=== PATIENT | female | born 1970 | race Caucasian/White ===

== ENCOUNTER 2018-04-24 18:51 | Emergency (ER) | payer OTHER ==
[2018-04-24 18:56] VITALS: RESP 18
[2018-04-24 19:31] LABS: Basophils # (A) 0.1 k/uL (0-0.2); Basophils % (A) 0 %; Eosinophils # (A) 0.2 k/uL (0-0.7); Eosinophils % (A) 2 %; HCT 37.6 % (34.0-46.0); HGB 12.5 gm/dL (11.4-16.0); Lymphocytes # (A) 2.5 k/uL (1.0-4.8); Lymphocytes % (A) 20 %; MCH 28.5 pg (25.0-35.0); MCHC 33.1 g/dL (31.0-37.0); MCV 86.1 fL (80.0-100.0); Mean Platelet Volume 6.5; Monocytes # (A) 0.3 k/uL (0-1.0); Monocytes % (A) 3 %; Neutrophils % (A) 74 %; Platelet Count 375 k/uL (150-450); RBC 4.37 m/uL (3.80-5.40); RDW 13.6 % (11.5-15.5); WBC 12.1 k/uL (3.8-10.6)
[2018-04-24 19:38] LABS: ALT 14 U/L (9-52); AST 23 U/L (14-36); Albumin 3.8 g/dL (3.5-5.0); Alkaline Phosphatase 103 U/L (38-126); Anion Gap 10 mmol/L; Blood Urea Nitrogen 9 mg/dL (7-17); Calcium 9.2 mg/dL (8.4-10.2); Carbon Dioxide 23 mmol/L (22-30); Chloride 102 mmol/L (98-107); Glucose 97 mg/dL (74-99); Magnesium 1.9 mg/dL (1.6-2.3); Potassium 4.1 mmol/L (3.5-5.1); Sodium 135 mmol/L (137-145); Total Bilirubin 0.6 mg/dL (0.2-1.3); Total Protein 7.1 g/dL (6.3-8.2)
[2018-04-24 19:40] LABS: Creatine Kinase 25 U/L (30-135)
--- NOTE | 2018-04-24 19:43 | ED ---
General Adult HPI - General Chief complaint: Chest Pain Stated complaint: chest pain Source: patient Mode of arrival: wheelchair Limitations: no limitations - History of Present Illness Initial comments: Dictation was produced using [employer] dictation software. please excuse any grammatical, word or spelling errors. Chief Complaint: 47-year-old female with past medical history tobacco abuse dyslipidemia and hypertension presents with chest pain. History of Present Illness: Patient presents with multiple complaints. Her primary complaint is chest tightness. She states that it's been ongoing for several weeks. Patient only came today because she just got health insurance. Patient reports that her pain is constant. Not exacerbated with movement. She states sometimes exacerbated with exertion however it does also occur at rest. She does state that sometimes radiates to her shoulders or neck. She states that it also is sometimes associated with diaphoresis. Patient has not been evaluated by a per diem physical therapist recently. Patient also has complaints of bilateral hand and foot her seizures that are intermittent. She also points that her feet are intermittently cold. Denies any constitutional symptoms. The ROS documented in this emergency department record has been reviewed and confirmed by me. Those systems with pertinent positive or negative responses have been documented in the HPI. All other systems are other negative and/or noncontributory. - Related Data Home Medications Medication Instructions Recorded Confirmed Acetaminophen [Tylenol] 650 mg PO Q6H PRN 04/24/18 04/24/18 Atorvastatin [Lipitor] 20 mg PO HS 04/24/18 04/24/18 Escitalopram [Lexapro] 20 mg PO HS 04/24/18 04/24/18 Glucosamine/[place] A Sod [Osteo 1 tab PO HS 04/24/18 04/24/18 Bi-Flex Caplet] Ibuprofen [Advil] 200 mg PO Q8HR PRN 04/24/18 04/24/18 Lisinopril-Hctz 20-25 mg 2 tab PO HS 04/24/18 04/24/18 [Zestoretic 20-25] Omeprazole 20 mg PO HS 04/24/18 04/24/18 SUMAtriptan SUCCINATE [Imitrex] 100 mg PO BID PRN 04/24/18 04/24/18 Allergies Allergy/AdvReac Type Severity Reaction Status Date / Time amoxicillin AdvReac Unknown Verified 04/24/18 19:03 Review of Systems ROS Statement: Those systems with pertinent positive or pertinent negative responses have been documented in the HPI. ROS Other: All systems not noted in ROS Statement are negative. Past Medical History Past Medical History: Hyperlipidemia, Hypertension History of Any Multi-Drug Resistant Organisms: None Reported Past Surgical History: Appendectomy, Tonsillectomy Past Psychological History: Anxiety Smoking Status: Former smoker Past Alcohol Use History: Occasional Past Drug Use History: None Reported General Exam - General Exam Comments Initial Comments: PHYSICAL EXAM: General Impression: Alert and oriented x3, not in acute distress HEENT: Normocephalic atraumatic, extra-ocular movements intact, pupils equal and reactive to light bilaterally, mucous membranes moist. Cardiovascular: Heart regular rate and rhythm, S1&S2 audible, no murmurs, rubs or gallops Chest: Lungs clear to auscultation bilaterally, no rhonchi, no wheeze, no rales Abdomen: Bowel sounds present, abdomen soft, non-tender, non-distended, no organomegaly Musculoskeletal: Pulses present and equal in all extremities, no peripheral edema Motor: Power 5/5 bilaterally, no focal deficits noted Neurological: CN II-XII grossly intact, no focal motor or sensory deficits noted Skin: Intact with no visualized rashes Psych: Normal affect and mood Limitations: no limitations Course Vital Signs 04/24/18 04/24/18 18:52 19:52 Temperature 97.7 F Pulse Rate 116 H 84 Respiratory 18 18 Rate Blood Pressure 110/59 133/80 O2 Sat by Pulse 98 96 Oximetry Medical Decision Making - Medical Decision Making ED course: 47-year-old female presents with a myriad of complaints. Her primary concern is chest pain. Chest pain is rather atypical with some typical features. Vital signs upon arrival shows heart rate of 116. Patient denies any history of blood clots or DVTs. EKG shows sinus tachycardia. Repeat vital signs are obtained showing no acute processes. Vision appears well. She does not have any chest pain upon reevaluation. Laboratory evaluation obtained. Mild leukocytosis of 12.1 likely secondary to stress. Coag panel is unremarkable. D-dimer is negative. Metabolic panel is negative. Cardiac enzymes are negative. Chest x-ray shows no acute processes. EKG is within normal limits without any signs of ischemia or infarction. Patient's clinical presentation is atypical. She does have multiple risk factors however there are no high-risk features with her clinical presentation. She however does have a lot of risk factors per discussed with patient that she would likely benefit from cardiac stress test. Patient does have good follow-up with her primary care physician. She is told to follow-up with her PCP for outpatient cardiac stress test. She is understandable and agreeable. EKG Interpretation: A 12 lead EKG was obtained. It was interpreted by myself and attending physician. There is a P wave before every QRS complex. Rate is while on. Rhythm is sinus tachycardia,. Interval 140, care is 82, QTC 471.. QT is not prolonged. No ST segment depression or elevation.. Overall, this EKG is unremarkable - Lab Data Result diagrams: 04/24/18 19:17 04/24/18 19:17 Lab Results 04/24/18 04/24/18 04/24/18 Range/Units 19:17 19:17 19:17 WBC 12.1 H (3.8-10.6) k/uL RBC 4.37 (3.80-5.40) m/uL Hgb 12.5 (11.4-16.0) gm/dL Hct 37.6 (34.0-46.0) % MCV 86.1 (80.0-100.0) fL MCH 28.5 (25.0-35.0) pg MCHC 33.1 (31.0-37.0) g/dL RDW 13.6 (11.5-15.5) % Plt Count 375 (150-450) k/uL Neutrophils % 74 % Lymphocytes % 20 % Monocytes % 3 % Eosinophils % 2 % Basophils % 0 % Neutrophils # 9.0 H (1.3-7.7) k/uL Lymphocytes # 2.5 (1.0-4.8) k/uL Monocytes # 0.3 (0-1.0) k/uL Eosinophils # 0.2 (0-0.7) k/uL Basophils # 0.1 (0-0.2) k/uL APTT (22.0-30.0) sec D-Dimer (<0.60) mg/L FEU Sodium 135 L (137-145) mmol/L Potassium 4.1 (3.5-5.1) mmol/L Chloride 102 (98-107) mmol/L Carbon Dioxide 23 (22-30) mmol/L Anion Gap 10 mmol/L BUN 9 (7-17) mg/dL Creatinine 0.48 L (0.52-1.04) mg/dL Est GFR (CKD-EPI)AfAm >90 (>60 ml/min/1.73 sqM) Est GFR (CKD-EPI)NonAf >90 (>60 ml/min/1.73 sqM) Glucose 97 (74-99) mg/dL Calcium 9.2 (8.4-10.2) mg/dL Magnesium 1.9 (1.6-2.3) mg/dL Total Bilirubin 0.6 (0.2-1.3) mg/dL AST 23 (14-36) U/L ALT 14 (9-52) U/L Alkaline Phosphatase 103 (38-126) U/L Total Creatine Kinase 25 L (30-135) U/L CK-MB (CK-2) <0.2 (0.0-2.4) ng/mL CK-MB (CK-2) Rel Index Troponin I <0.012 (0.000-0.034) ng/mL Total Protein 7.1 (6.3-8.2) g/dL Albumin 3.8 (3.5-5.0) g/dL 04/24/18 Range/Units 19:17 WBC (3.8-10.6) k/uL RBC (3.80-5.40) m/uL Hgb (11.4-16.0) gm/dL Hct (34.0-46.0) % MCV (80.0-100.0) fL MCH (25.0-35.0) pg MCHC (31.0-37.0) g/dL RDW (11.5-15.5) % Plt Count (150-450) k/uL Neutrophils % % Lymphocytes % % Monocytes % % Eosinophils % % Basophils % % Neutrophils # (1.3-7.7) k/uL Lymphocytes # (1.0-4.8) k/uL Monocytes # (0-1.0) k/uL Eosinophils # (0-0.7) k/uL Basophils # (0-0.2) k/uL APTT 26.1 (22.0-30.0) sec D-Dimer 0.21 (<0.60) mg/L FEU Sodium (137-145) mmol/L Potassium (3.5-5.1) mmol/L Chloride (98-107) mmol/L Carbon Dioxide (22-30) mmol/L Anion Gap mmol/L BUN (7-17) mg/dL Creatinine (0.52-1.04) mg/dL Est GFR (CKD-EPI)AfAm (>60 ml/min/1.73 sqM) Est GFR (CKD-EPI)NonAf (>60 ml/min/1.73 sqM) Glucose (74-99) mg/dL Calcium (8.4-10.2) mg/dL Magnesium (1.6-2.3) mg/dL Total Bilirubin (0.2-1.3) mg/dL AST (14-36) U/L ALT (9-52) U/L Alkaline Phosphatase (38-126) U/L Total Creatine Kinase (30-135) U/L CK-MB (CK-2) (0.0-2.4) ng/mL CK-MB (CK-2) Rel Index Troponin I (0.000-0.034) ng/mL Total Protein (6.3-8.2) g/dL Albumin (3.5-5.0) g/dL Disposition Clinical Impression: Chest pain Disposition: HOME SELF-CARE Condition: Good Instructions: Chest Pain (ED) Is patient prescribed a controlled substance at d/c from ED?: No Referrals: Cesar Cuenca MD [Primary Care Provider] - 1-2 days
[2018-04-24 19:45] LABS: D-Dimer 0.21 mg/L FEU (<0.60); Partial Thromboplastin Time 26.1 sec (22.0-30.0)
[2018-04-24 19:53] LABS: Creatine Kinase MB <0.2 ng/mL (0.0-2.4); Troponin I <0.012 ng/mL (0.000-0.034)
--- NOTE | 2018-04-24 20:05 | XR ---
EXAMINATION TYPE: XR chest 2V DATE OF EXAM: 04/24/2018 COMPARISON: NONE HISTORY: Chest pain TECHNIQUE: Frontal and lateral views of the chest are obtained. FINDINGS: Heart and mediastinum are normal. Lungs are clear. Diaphragm is normal. Bony thorax appear s normal. There are chest leads. IMPRESSION: Normal chest.
[2018-04-24 20:50] VITALS: BP 116/85; PULSE 80; TEMP 98.3
[2018-04-24 21:26] LABS: Prothrombin Time 10.1 sec (9.0-12.0)
== END 2018-04-24 20:33 | disposition home or self-care (01) ==
LOC: EC 18:51
DX: R07.89 Other chest pain (principal); R00.0 Tachycardia, unspecified; R61 Generalized hyperhidrosis; D72.829 Elevated white blood cell count, unspecified; E78.5 Hyperlipidemia, unspecified; I10 Essential (primary) hypertension; F41.9 Anxiety disorder, unspecified; Z87.891 Personal history of nicotine dependence; Z90.49 Acquired absence of other specified parts of digestive tract; Z79.899 Other long term (current) drug therapy; Z88.0 Allergy status to penicillin
CPT/HCPCS: 36415; 71046; 80053; 82550; 82553; 83735; 84484; 85025; 85379; 85610; 85730; 93005; 99285

== ENCOUNTER 2018-09-30 02:54 | Emergency (ER) | payer OTHER ==
[2018-09-30] MEDS ORDERED: HYDROmorphone 1 MG/ML 1 ML SYRINGE IVP STA ×2 (04:17→07:47)
[2018-09-30 04:38] LABS: ALT 24 U/L (9-52); AST 21 U/L (14-36); Albumin 3.9 g/dL (3.5-5.0); Alkaline Phosphatase 110 U/L (38-126); Amylase 41 U/L (30-110); Anion Gap 10 mmol/L; Blood Urea Nitrogen 9 mg/dL (7-17); Calcium 9.2 mg/dL (8.4-10.2); Carbon Dioxide 25 mmol/L (22-30); Chloride 101 mmol/L (98-107); Glucose 90 mg/dL (74-99); Lipase 91 U/L (23-300); Potassium 3.7 mmol/L (3.5-5.1); Sodium 136 mmol/L (137-145); Total Bilirubin 0.5 mg/dL (0.2-1.3); Total Protein 6.9 g/dL (6.3-8.2)
[2018-09-30 04:42] LABS: Basophils # (A) 0.1 k/uL (0-0.2); Basophils % (A) 1 %; Eosinophils # (A) 0.3 k/uL (0-0.7); Eosinophils % (A) 4 %; HCT 38.3 % (34.0-46.0); Lymphocytes # (A) 4.4 k/uL (1.0-4.8); Lymphocytes % (A) 53 %; MCH 28.4 pg (25.0-35.0); MCHC 33.9 g/dL (31.0-37.0); MCV 83.8 fL (80.0-100.0); Mean Platelet Volume 6.7; Monocytes # (A) 0.3 k/uL (0-1.0); Monocytes % (A) 4 %; Neutrophils # (A) 3.2 k/uL (1.3-7.7); Neutrophils % (A) 38 %; Platelet Count 375 k/uL (150-450); RBC 4.57 m/uL (3.80-5.40); RDW 13.4 % (11.5-15.5); WBC 8.4 k/uL (3.8-10.6)
[2018-09-30 05:44] VITALS: RESP 18
[2018-09-30 05:47] LABS: Appearance,Urine Clear (Clear); Bilirubin,Urine Negative (Negative); Blood,Urine Negative (Negative); Color,Urine Light Yellow; Glucose,Urine (UA) Negative (Negative); Ketones,Urine Negative (Negative); Leukocyte Esterase,Urine Negative (Negative); Nitrite,Urine Negative (Negative); Protein,Urine Negative (Negative); Urobilinogen,Urine <2.0 mg/dL (<2.0)
--- NOTE | 2018-09-30 07:35 | US ---
EXAMINATION TYPE: US abdomen limited DATE OF EXAM: 09/30/2018 COMPARISON: NONE CLINICAL HISTORY: Pain, RUQ. NPO, RUQ pain EXAM MEASUREMENTS: Liver Length: 15.5 cm Gallbladder Wall: 0.2 cm Right Kidney: 10.7 x 5.4 x 4.4 cm Pancreas: Limited by overlying bowel gas, Tail not well visualized Liver: Scanned through ribs. Limited visualization due to overlying bowel gas. Portions seen appear wnl. Gallbladder: wnl Evidence for sonographic Saldana's sign: neg CBD: Obscured by overlying bowel gas Right Kidney: wnl Portions of pancreas appear within normal limits. Entire pancreas is not visualized due to shadowing from overlying bowel gas per technologist. Visualized liver is heterogeneously hyperechoic. Evaluatio n for focal masses is suboptimal due to the heterogeneity. Gallbladder seen without shadowing mobile gallstones. Limited images right kidney show no gross hydronephrosis. IMPRESSION: Suboptimal study but no gallstones or ultrasound evidence for acute cholecystitis.
--- NOTE | 2018-09-30 07:51 | ED ---
Abdominal Pain HPI - General Source: patient, family Mode of arrival: ambulatory Limitations: no limitations - History of Present Illness MD Complaint: abdominal pain Onset/Timin -: week(s) Location: RUQ Radiation: back Migration to: no migration Severity: severe Quality: sharp Consistency: constant Improves With: nothing Worsens With: movement Associated Symptoms: nausea <Veto Trujillo - Last Filed: 09/30/18 07:48> <Flaco Wilkinson - Last Filed: 09/30/18 09:23> - General Chief Complaint: Abdominal Pain Stated Complaint: rib pain Time Seen by Provider: 09/30/18 03:55 - History of Present Illness Initial Comments: This patient is a 48-year-old woman who is having approximately 2 weeks of right upper quadrant pain. The patient states that initially it was intermittent. She will get the pain lasting for 30-45 minutes and then it would resolve. She states that it seemed to be brought on by food. The patient states that over the last day to 2 the pain has become more constant and is now severe. She describes it as a sharp pain. She has not noted relieving factors and again states that it is worse with eating. No associated symptoms other then some accompanying nausea. No vomiting. She has not noted a change in bowel movements or urination. (Veto Trujillo) - Related Data Home Medications Medication Instructions Recorded Confirmed Acetaminophen [Tylenol] 650 mg PO Q6H PRN 04/24/18 09/30/18 Atorvastatin [Lipitor] 20 mg PO HS 04/24/18 09/30/18 Escitalopram [Lexapro] 20 mg PO HS 04/24/18 09/30/18 Glucosamine/[place] A Sod [Osteo 1 tab PO HS 04/24/18 09/30/18 Bi-Flex Caplet] Ibuprofen [Advil] 200 mg PO Q8HR PRN 04/24/18 09/30/18 Lisinopril-Hctz 20-25 mg 2 tab PO HS 04/24/18 09/30/18 [Zestoretic 20-25] Omeprazole 20 mg PO HS 04/24/18 09/30/18 SUMAtriptan SUCCINATE [Imitrex] 100 mg PO BID PRN 04/24/18 09/30/18 LORazepam [Ativan] 2 mg PO DAILY PRN 09/30/18 09/30/18 Previous Rx's Medication Instructions Recorded traMADol HCl [Ultram] 50 mg PO Q6H PRN #12 tab 09/30/18 Allergies Allergy/AdvReac Type Severity Reaction Status Date / Time amoxicillin AdvReac Unknown Verified 09/30/18 07:59 Review of Systems ROS Other: All systems not noted in ROS Statement are negative. Constitutional: Denies: fever, chills Respiratory: Denies: cough, dyspnea Cardiovascular: Denies: chest pain, palpitations, edema, syncope Gastrointestinal: Reports: abdominal pain, nausea. Denies: vomiting, diarrhea, melena, hematochezia Genitourinary: Denies: dysuria, hematuria Musculoskeletal: Denies: back pain Skin: Denies: rash Neurological: Denies: headache, weakness, numbness <Veto Trujillo - Last Filed: 09/30/18 07:48> ROS Other: All systems not noted in ROS Statement are negative. <Flaco Wilkinson - Last Filed: 09/30/18 09:23> ROS Statement: Those systems with pertinent positive or pertinent negative responses have been documented in the HPI. Past Medical History Past Medical History: Hyperlipidemia, Hypertension History of Any Multi-Drug Resistant Organisms: None Reported Past Surgical History: Appendectomy, Tonsillectomy Past Psychological History: Anxiety Smoking Status: Former smoker Past Alcohol Use History: Occasional Past Drug Use History: None Reported <Veto Trujillo - Last Filed: 09/30/18 07:48> General Exam Limitations: no limitations General appearance: alert, in no apparent distress Head exam: Present: atraumatic, normocephalic Eye exam: Present: normal appearance. Absent: scleral icterus, conjunctival injection ENT exam: Present: normal oropharynx Neck exam: Present: normal inspection Respiratory exam: Present: normal lung sounds bilaterally. Absent: respiratory distress, wheezes, rales, rhonchi, stridor Cardiovascular Exam: Present: regular rate, normal rhythm, normal heart sounds. Absent: systolic murmur, diastolic murmur, rubs, gallop GI/Abdominal exam: Present: soft, tenderness (Mild right upper quadrant tenderness). Absent: distended, guarding, rebound, rigid, mass, pulsatile mass, hernia Extremities exam: Present: normal inspection, normal capillary refill. Absent: pedal edema, calf tenderness Back exam: Present: normal inspection. Absent: CVA tenderness (R), CVA tenderness (L) Neurological exam: Present: alert Skin exam: Present: warm, dry, intact, normal color. Absent: rash <CassandraVeto - Last Filed: 09/30/18 07:48> Course Vital Signs 09/30/18 09/30/18 03:45 05:43 Temperature 98.6 F Pulse Rate 100 81 Respiratory 20 18 Rate Blood Pressure 133/80 117/63 O2 Sat by Pulse 99 96 Oximetry Medical Decision Making - Lab Data Result diagrams: 09/30/18 04:05 09/30/18 04:05 <Veto Trujillo - Last Filed: 09/30/18 07:48> - Lab Data Result diagrams: 09/30/18 04:05 09/30/18 04:05 - Radiology Data Radiology results: report reviewed (Ultrasound and computed tomography scan revealed no acute process) <Flaco Wilkinson - Last Filed: 09/30/18 09:23> - Medical Decision Making Patient reevaluated and resting comfortably in bed. Patient symptom-free at this time. Patient and family updated on results and need for follow-up with further testing. Ulcer updated and need to return if symptoms return or worsen (Flaco Wilkinson) - Lab Data Lab Results 09/30/18 09/30/18 09/30/18 Range/Units 04:05 04:05 05:30 WBC 8.4 (3.8-10.6) k/uL RBC 4.57 (3.80-5.40) m/uL Hgb 13.0 (11.4-16.0) gm/dL Hct 38.3 (34.0-46.0) % MCV 83.8 (80.0-100.0) fL MCH 28.4 (25.0-35.0) pg MCHC 33.9 (31.0-37.0) g/dL RDW 13.4 (11.5-15.5) % Plt Count 375 (150-450) k/uL Neutrophils % 38 % Lymphocytes % 53 % Monocytes % 4 % Eosinophils % 4 % Basophils % 1 % Neutrophils # 3.2 (1.3-7.7) k/uL Lymphocytes # 4.4 (1.0-4.8) k/uL Monocytes # 0.3 (0-1.0) k/uL Eosinophils # 0.3 (0-0.7) k/uL Basophils # 0.1 (0-0.2) k/uL Sodium 136 L (137-145) mmol/L Potassium 3.7 (3.5-5.1) mmol/L Chloride 101 (98-107) mmol/L Carbon Dioxide 25 (22-30) mmol/L Anion Gap 10 mmol/L BUN 9 (7-17) mg/dL Creatinine 0.47 L (0.52-1.04) mg/dL Est GFR (CKD-EPI)AfAm >90 (>60 ml/min/1.73 sqM) Est GFR (CKD-EPI)NonAf >90 (>60 ml/min/1.73 sqM) Glucose 90 (74-99) mg/dL Calcium 9.2 (8.4-10.2) mg/dL Total Bilirubin 0.5 (0.2-1.3) mg/dL AST 21 (14-36) U/L ALT 24 (9-52) U/L Alkaline Phosphatase 110 (38-126) U/L Total Protein 6.9 (6.3-8.2) g/dL Albumin 3.9 (3.5-5.0) g/dL Amylase 41 (30-110) U/L Lipase 91 (23-300) U/L Urine Color Light Yellow Urine Appearance Clear (Clear) Urine pH 7.0 (5.0-8.0) Ur Specific [place] 1.010 (1.001-1.035) Urine Protein Negative (Negative) Urine Glucose (UA) Negative (Negative) Urine Ketones Negative (Negative) Urine Blood Negative (Negative) Urine Nitrite Negative (Negative) Urine Bilirubin Negative (Negative) Urine Urobilinogen <2.0 (<2.0) mg/dL Ur Leukocyte Esterase Negative (Negative) Disposition <Veto Trujillo - Last Filed: 09/30/18 07:48> Is patient prescribed a controlled substance at d/c from ED?: Yes When asked, does pt state using other controlled substances?: Yes If prescribed controlled substance>3 days was MAPS reviewed?: Prescribed <3 Days If opioid is for acute pain is fill amount 7 days or less?: Yes If Rx opioid, was Start Talking consent form obtained?: Yes <Flaco Wilkinson - Last Filed: 09/30/18 09:23> Clinical Impression: Abdominal pain Disposition: HOME SELF-CARE Condition: Stable Instructions (If sedation given, give patient instructions): Abdominal Pain (ED) Additional Instructions: Please follow-up with primary care physician in the next day or 2 for recheck. Have primary care physician consider HIDA scan, barium swallow or EGD. Return for increased pain, vomiting, fevers, worsening symptoms or other concerns. Do not take pain medication with Ativan. Prescriptions: traMADol HCl [Ultram] 50 mg PO Q6H PRN #12 tab PRN Reason: Pain/Discomfort Referrals: Cesar Cuenca MD [Primary Care Provider] - 1-2 days
[2018-09-30] MEDS ORDERED: HYDROmorphone 0.5 MG/0.5 ML SYRINGE IVP STA (07:54)
--- NOTE | 2018-09-30 08:28 | CT ---
EXAMINATION TYPE: CT abdomen pelvis wo con DATE OF EXAM: 09/30/2018 COMPARISON: Ultrasound abdomen same date HISTORY: RUQ pain CT DLP: 1004.6 mGycm Automated exposure control for dose reduction was used. TECHNIQUE: Helical acquisition of images from the lung bases through the pelvis. FINDINGS: Lack of intravenous contrast could compromise sensitivity. Small umbilical hernia contains fat, midline incision suspected in inferomedial umbilical region. LUNG BASES: 3 mm soft tissue nodule present right lower lobe image 14 laterally is indeterminate. AORTA: No significant abnormality is appreciated. LIVER/GB: No significant abnormality is appreciated. PANCREAS: No significant abnormality is seen. SPLEEN: No significant abnormality is seen. Small splenule incidental splenic hilum. ADRENALS: No significant abnormality is seen. KIDNEYS: No significant abnormality is seen. REPRODUCTIVE ORGANS: No significant abnormality is seen. Probable follicles of possible ovarian cyst noted greater on the left, uterus is normal URINARY BLADDER: No significant abnormality is seen. BOWEL: No significant abnormality is seen. FREE AIR: No Free Air is visible. ASCITES: None visible. PELVIC ADENOPATHY: None visualized. RETROPERITONEAL ADENOPATHY: No Retroperitoneal Adenopathy visible. OSSEOUS STRUCTURES: No significant abnormality is seen. IMPRESSION: noncontrast exam, no significant abnormality
[2018-09-30 09:36] VITALS: BP 113/67; PULSE 64; TEMP 98.4
== END 2018-09-30 09:25 | disposition home or self-care (01) ==
LOC: EC 02:54
DX: R10.11 Right upper quadrant pain (principal); R11.0 Nausea; E78.5 Hyperlipidemia, unspecified; I10 Essential (primary) hypertension; F41.9 Anxiety disorder, unspecified; Z87.891 Personal history of nicotine dependence; Z88.0 Allergy status to penicillin; Z79.899 Other long term (current) drug therapy; Z90.49 Acquired absence of other specified parts of digestive tract
CPT/HCPCS: 36415; 80053; 82150; 83690; 85025; 81003; 76705; 74176; 99284; 96374; 96376; J1170 ×2

== ENCOUNTER 2024-11-11 19:27 | Emergency (ER) | payer OTHER ==
[2024-11-11] MEDS: SODIUM CHLORIDE 0.9% 1,000 ML IV STA (20:24)
[2024-11-11] MEDS: MECLIZINE 12.5 MG TAB PO STA (20:24)
[2024-11-11 20:30] LABS: Basophils # (A) 0.06 10*3/uL (0.00-0.10); Basophils % (A) 0.7 %; Eosinophils # (A) 0.17 10*3/uL (0.04-0.35); Eosinophils % (A) 2.1 %; HCT 39.7 % (37.2-46.3); Lymphocytes # (A) 2.88 10*3/uL (0.90-5.00); Lymphocytes % (A) 35.7 %; MCHC 32.7 g/dL (32.0-37.0); MCV 88.6 fL (80.0-97.0); Mean Platelet Volume 8.7 fL (9.5-12.2); Monocytes # (A) 0.52 10*3/uL (0.20-1.00); Monocytes % (A) 6.4 %; Neutrophils # (A) 4.42 10*3/uL (1.80-7.70); Neutrophils % (A) 54.9 %; Platelet Count 351 10*3/uL (140-440); RBC 4.48 10*6/uL (4.10-5.20); WBC 8.07 10*3/uL (4.50-10.00)
[2024-11-11 20:41] LABS: Prothrombin Time 11.1 sec (10.0-12.5)
[2024-11-11 20:42] LABS: ALT 19 U/L (4-34); AST 22 U/L (14-36); African American GFR (CKD) >90 (>60 ml/min/1.73 sqM); Alkaline Phosphatase 87 U/L (38-126); Anion Gap 9 mmol/L; Blood Urea Nitrogen 10 mg/dL (7-17); Calcium 9.3 mg/dL (8.4-10.2); Carbon Dioxide 26 mmol/L (22-30); Chloride 102 mmol/L (98-107); Glucose 99 mg/dL (74-99); Non-African American GFR(CKD) 80 (>60 ml/min/1.73 sqM); Potassium 3.9 mmol/L (3.5-5.1); Sodium 137 mmol/L (137-145); Total Bilirubin 0.5 mg/dL (0.2-1.3); Total Protein 6.9 g/dL (6.3-8.2)
--- NOTE | 2024-11-11 21:03 | CT ---
EXAMINATION TYPE: CT brain wo con CT DLP: 1199 mGycm, Automated exposure control for dose reduction was used. DATE OF EXAM: 11/11/2024 8:54 PM COMPARISON: None. CLINICAL INDICATION:Female, 54 years old with history of dizziness, DIZZINESS, RIGHT SIDE FACIAL TING LING/NUMBNESS TODAY TECHNIQUE: Brain: Multiple axial CT images of the brain were obtained without IV contrast. . Coronal and sagitta l reformats reviewed. FINDINGS: Brain: Extra-axial spaces: No abnormal extra-axial fluid collections. Ventricular system: Within normal limits Cerebral parenchyma: No acute intraparenchymal hemorrhage or mass effect. The leyva-white junction is well differentiated. Cerebellum: Unremarkable. Mass effect: No evidence of midline shift. Intracranial vasculature: unremarkable Soft tissues: Normal. Calvarium/osseous structures: No depressed skull fracture. Paranasal sinuses and mastoid air cells: Clear Visualized orbits: Orbital contents are intact. IMPRESSION: No acute intracranial process. [facility], , 11/11/2024 9:01 PM
--- NOTE | 2024-11-11 21:15 | CT ---
EXAMINATION TYPE: CT angio head neck CT DLP: 949.9 mGycm, Automated exposure control for dose reduction was used. DATE OF EXAM: 11/11/2024 9:08 PM COMPARISON: CT brain of the same date. CLINICAL INDICATION:Female, 54 years old with history of dizziness; PHH, DIZZINESS, RIGHT SIDE FACIAL TINGLING/NUMBNESS TODAY TECHNIQUE: Axially acquired helical CT angiogram of the head and neck was obtained with contrast util izing 75 cc of [id number]-[id number] administered intravenously. Axial images are supplemented with 3D reconstru ctions which were post-processed at an independent workstation. NASCET criteria used. MIP imaging performed on a separate workstation and submitted for review. FINDINGS: CTA HEAD: No evidence of acute intracranial hemorrhage, mass effect, or midline shift. The ventricles, sulci, a nd cisterns are unremarkable. The visualized portions of the internal carotid arteries, middle cerebral arteries, anterior cerebral arteries, and posterior cerebral arteries are patent. The basilar and vertebral arteries are patent. CTA NECK: Right Carotid System: The common carotid artery and external carotid artery are patent. The carotid bifurcation demonstrate s no evidence of hemodynamically significant stenosis. The remaining portions of the internal carotid artery demonstrate normal size without significant narrowing. Left Carotid System: The common carotid artery and external carotid artery are patent. The carotid bifurcation demonstrate s no evidence of hemodynamically significant stenosis. The remaining portions of the internal carotid artery demonstrate normal size without significant narrowing. Vertebral arteries are patent without evidence hemodynamically significant stenosis. Right vertebral artery is dominant. There is a bovine aortic arch. The origins of the great vessels are patent. No evidence of hemodynami hammad significant stenosis. Mild multilevel degenerative disc disease of the cervical spine at C4-C7. IMPRESSION: 1. No evidence of dissection of the cervical internal carotid arteries or vertebral arteries or any e vidence of significant stenosis at the carotid bifurcations. 2. No evidence of high-grade stenosis or intracranial aneurysm. [facility], , 11/11/2024 9:13 PM
--- NOTE | 2024-11-11 21:54 | ED ---
Dizziness HPI - General Chief Complaint: Dizziness Stated Complaint: Balance off/AMS Time Seen by Provider: 11/11/24 19:35 Source: patient Mode of arrival: ambulatory Limitations: no limitations - History of Present Illness Initial Comments: 54-year-old female presenting with chief complaint of dizziness. Patient reports that dizziness has been ongoing for months. She has been seen by ENT and is now awaiting an appointment with neurology. She reports that today the right side of her face felt swollen so she came to the ER. She reports intermittent headaches that have also been ongoing for few months. States that she has moments of twitching in the extremities and face. She has history of hypertension and hyperlipidemia. She does not smoke. She drinks socially. She has been using marijuana gummies at night for sleep. No chest pain or dif ficulty breathing. No abdominal pain nausea or vomiting. No use of blood thinners. She also admits to intermittent confusion which has been ongoing as well. - Related Data Home Medications Medication Instructions Recorded Confirmed Acetaminophen [Tylenol] 650 mg PO Q6H PRN 04/24/18 09/30/18 Atorvastatin [Lipitor] 20 mg PO HS 04/24/18 09/30/18 Escitalopram [Lexapro] 20 mg PO HS 04/24/18 09/30/18 Glucosamine/[place] A Sod [Osteo 1 tab PO HS 04/24/18 09/30/18 Bi-Flex Caplet] Ibuprofen [Advil] 200 mg PO Q8HR PRN 04/24/18 09/30/18 Lisinopril-Hctz 20-25 mg 2 tab PO HS 04/24/18 09/30/18 [Zestoretic 20-25] Omeprazole 20 mg PO HS 04/24/18 09/30/18 SUMAtriptan succinate [Imitrex] 100 mg PO BID PRN 04/24/18 09/30/18 LORazepam [Ativan] 2 mg PO DAILY PRN 09/30/18 09/30/18 Previous Rx's Medication Instructions Recorded traMADol HCl [Ultram] 50 mg PO Q6H PRN #12 tab 09/30/18 Allergies Allergy/AdvReac Type Severity Reaction Status Date / Time amoxicillin AdvReac Unknown Verified 11/11/24 19:33 Review of Systems ROS Statement: Those systems with pertinent positive or pertinent negative responses have been documented in the HPI. ROS Other: All systems not noted in ROS Statement are negative. Past Medical History Past Medical History: Hyperlipidemia, Hypertension History of Any Multi-Drug Resistant Organisms: None Reported Past Surgical History: Appendectomy, Tonsillectomy Past Psychological History: Anxiety, Depression Smoking Status: Never smoker Past Alcohol Use History: Occasional Past Drug Use History: None Reported General Exam Limitations: no limitations General appearance: alert, in no apparent distress Head exam: Present: atraumatic, normocephalic, normal inspection Eye exam: Present: normal appearance, PERRL, EOMI. Absent: periorbital swelling Pupils: Present: normal accommodation Neck exam: Present: normal inspection. Absent: meningismus Respiratory exam: Present: normal lung sounds bilaterally. Absent: respiratory distress, wheezes, rales, rhonchi, stridor Cardiovascular Exam: Present: regular rate, normal rhythm, normal heart sounds. Absent: systolic murmur, diastolic murmur, rubs, gallop, clicks Extremities exam: Present: normal inspection Neurological exam: Present: alert, oriented X3 Expanded Patient oriented to: Present: person, place, time Speech: Present: fluid speech Cranial nerves: EOM's Intact: Normal, Facial Sensation: Normal Cerebellar function: Finger to Nose: Normal, Heel to [place]: Normal Motor strength exam: RUE: 5, LUE: 5, RLE: 5, LLE: 5 Eye Response: (4) open spontaneously Motor Response: (6) obeys commands Verbal Response: (5) oriented [place] Total: 15 Psychiatric exam: Present: normal affect, normal mood Skin exam: Present: warm, dry, normal color Course Vital Signs 11/11/24 11/11/24 11/11/24 19:30 20:27 23:08 Temperature 98.5 F 98.3 F Pulse Rate 87 73 77 Respiratory 18 18 19 Rate Blood Pressure 134/83 131/90 90/54 O2 Sat by Pulse 99 97 96 Oximetry Medical Decision Making - Medical Decision Making Was pt. sent in by a medical professional or institution (, PA, AUTO MECHANICS TEACHER, urgent care, hospital, or fpc...) When possible be specific @ -No Did you speak to anyone other than the patient for history (EMS, parent, family, police, friend...)? What history was obtained from this source @ -No Did you review nursing and triage notes (agree or disagree)? Why? @ -I reviewed and agree with nursing and triage notes Were old charts reviewed (outside hosp., previous admission, EMS record, old EKG, old radiological studies, urgent care reports/EKG's, fpc records)? Report findings @ -No old charts were reviewed Differential Diagnosis (chest pain, altered mental status, abdominal pain women, abdominal pain men, vaginal bleeding, weakness, fever, dyspnea, syncope, headache, dizziness, GI bleed, back pain, seizure, CVA, palpatations, mental health, musculoskeletal)? @ -MDM Differential Dizziness: Benign paroxysmal positional Vertigo, Meniere’s disease, otitis media, acoustic neuroma, vertebrobasilar insufficiency, cerebellar stroke, encephalitis, hypovolemic, arrhythmia, coronary artery syndrome, anemia… this is not meant to be an all-inclusive list EKG interpreted by me (3pts min.). @ -EKG shows sinus rhythm ventricular rate 77. SD interval 135. QRS 98. QT 374. QTc 405 X-rays interpreted by me (1pt min.). @ -None done CT interpreted by me (1pt min.). @ -CT of the brain shows no acute intracranial process. CTA of the head and neck shows no evidence of dissection of the cervical internal carotid arteries or vertebral arteries or any evidence of significant stenosis at the carotid bifurcations. No evidence of high-grade stenosis or intracranial aneurysm U/S interpreted by me (1pt. min.). @ -None done What testing was considered but not performed or refused? (CT, X-rays, U/S, labs)? Why? @ -UA, patient declined What meds were considered but not given or refused? Why? @ -None Did you discuss the management of the patient with other professionals (professionals i.e. , PA, AUTO MECHANICS TEACHER, lab, RT, psych nurse, social worker assistant, cost accountant, teacher, electronic intelligence officer, community case manager)? Give summary @ -No Was smoking cessation discussed for >3mins.? @ -No Was critical care preformed (if so, how long)? @ -No Were there social determinants of health that impacted care today? How? (Homelessness, low income, unemployed, alcoholism, drug addiction, transportation, low edu. Level, literacy, decrease access to med. care, snf, rehab)? @ -No Was there de-escalation of care discussed even if they declined (Discuss DNR or withdrawal of care, Hospice)? DNR status @ -No What co-morbidities impacted this encounter? (DM, HTN, Smoking, COPD, CAD, Cancer, CVA, ARF, Chemo, Hep., AIDS, mental health diagnosis, sleep apnea, m orbid obesity)? @ -None Was patient admitted / discharged? Hospital course, mention meds given and route, prescriptions, significant lab abnormalities, going to OR and other pertinent info. @ -54-year-old female presenting with chief complaint of dizziness which has been ongoing for weeks. Patient has an upcoming appointment with neurology at the beginning of November. History and physical examination are conducted. GCS 15 NIH 0. Labs are essentially unremarkable. No acute process seen on CT of the brain or CTA of the head and neck. EKG shows sinus rhythm. Vital signs are stable. Patient on reassessment shows no signs of acute distress. She is educated on today's findings. I offered to perform a UA which the patient declined. She is having no urinary symptoms. She is instructed to follow-up at her neurology appointment. Follow-up with PCP. Report back to ER with any new or worsening symptoms. Discussed return parameters and answered all questions. Patient conveyed verbal understanding and agreed to the plan. I discussed this case in detail with my attending Dr. Wilson Undiagnosed new problem with uncertain prognosis? @ -No Drug Therapy requiring intensive monitoring for toxicity (Heparin, Nitro, Insulin, Cardizem)? @ -No Were any procedures done? @ -No Diagnosis/symptom? @ -Dizziness Acute, or Chronic, or Acute on Chronic? @ -Acute Uncomplicated (without systemic symptoms) or Complicated (systemic symptoms)? @ -Uncomplicated Side effects of treatment? @ -No Exacerbation, Progression, or Severe Exacerbation? @ -No Poses a threat to life or bodily function? How? (Chest pain, [place], NE, pneumonia, PE, COPD, DKA, ARF, appy, cholecystitis, CVA, Diverticulitis, Homicidal, Suicidal, threat to staff... and all critical care pts) @ -Low likelihood - Lab Data Result diagrams: 11/11/24 19:53 11/11/24 19:53 Lab Results 11/11/24 11/11/24 11/11/24 Range/Units 19:53 19:53 19:53 WBC 8.07 (4.50-10.00) 10*3/uL RBC 4.48 (4.10-5.20) 10*6/uL Hgb 13.0 (12.0-15.0) g/dL Hct 39.7 (37.2-46.3) % MCV 88.6 (80.0-97.0) fL MCH 29.0 (27.0-32.0) pg MCHC 32.7 (32.0-37.0) g/dL Plt Count 351 (140-440) 10*3/uL MPV 8.7 L (9.5-12.2) fL Immature Gran % (Auto) 0.2 % Neutrophils % 54.9 % Lymphocytes % 35.7 % Monocytes % 6.4 % Eosinophils % 2.1 % Basophils % 0.7 % Immature Gran # 0.02 (0.00-0.04) 10*3/uL Neutrophils # 4.42 (1.80-7.70) 10*3/uL Lymphocytes # 2.88 (0.90-5.00) 10*3/uL Monocytes # 0.52 (0.20-1.00) 10*3/uL Eosinophils # 0.17 (0.04-0.35) 10*3/uL Basophils # 0.06 (0.00-0.10) 10*3/uL PT 11.1 (10.0-12.5) sec INR 1.0 (<1.2) Sodium 137 (137-145) mmol/L Potassium 3.9 (3.5-5.1) mmol/L Chloride 102 (98-107) mmol/L Carbon Dioxide 26 (22-30) mmol/L Anion Gap 9 mmol/L BUN 10 (7-17) mg/dL Creatinine 0.83 (0.52-1.04) mg/dL Est GFR (CKD-EPI)AfAm >90 (>60 ml/min/1.73 sqM) Est GFR (CKD-EPI)NonAf 80 (>60 ml/min/1.73 sqM) Glucose 99 (74-99) mg/dL Plasma Lactic Acid Tonny (0.7-2.0) mmol/L Calcium 9.3 (8.4-10.2) mg/dL Total Bilirubin 0.5 (0.2-1.3) mg/dL AST 22 (14-36) U/L ALT 19 (4-34) U/L Alkaline Phosphatase 87 (38-126) U/L Troponin I (0.000-0.034) ng/mL Total Protein 6.9 (6.3-8.2) g/dL Albumin 4.0 (3.5-5.0) g/dL 11/11/24 11/11/24 Range/Units 19:53 19:53 WBC (4.50-10.00) 10*3/uL RBC (4.10-5.20) 10*6/uL Hgb (12.0-15.0) g/dL Hct (37.2-46.3) % MCV (80.0-97.0) fL MCH (27.0-32.0) pg MCHC (32.0-37.0) g/dL Plt Count (140-440) 10*3/uL MPV (9.5-12.2) fL Immature Gran % (Auto) % Neutrophils % % Lymphocytes % % Monocytes % % Eosinophils % % Basophils % % Immature Gran # (0.00-0.04) 10*3/uL Neutrophils # (1.80-7.70) 10*3/uL Lymphocytes # (0.90-5.00) 10*3/uL Monocytes # (0.20-1.00) 10*3/uL Eosinophils # (0.04-0.35) 10*3/uL Basophils # (0.00-0.10) 10*3/uL PT (10.0-12.5) sec INR (<1.2) Sodium (137-145) mmol/L Potassium (3.5-5.1) mmol/L Chloride (98-107) mmol/L Carbon Dioxide (22-30) mmol/L Anion Gap mmol/L BUN (7-17) mg/dL Creatinine (0.52-1.04) mg/dL Est GFR (CKD-EPI)AfAm (>60 ml/min/1.73 sqM) Est GFR (CKD-EPI)NonAf (>60 ml/min/1.73 sqM) Glucose (74-99) mg/dL Plasma Lactic Acid Tonny 1.6 (0.7-2.0) mmol/L Calcium (8.4-10.2) mg/dL Total Bilirubin (0.2-1.3) mg/dL AST (14-36) U/L ALT (4-34) U/L Alkaline Phosphatase (38-126) U/L Troponin I <0.012 (0.000-0.034) ng/mL Total Protein (6.3-8.2) g/dL Albumin (3.5-5.0) g/dL Disposition Clinical Impression: Dizziness Disposition: HOME SELF-CARE Condition: Good Instructions (If sedation given, give patient instructions): Dizziness (ED) Additional Instructions: Follow-up with your PCP and neurologist at scheduled appointment. Report back to ER with any new or worsening symptoms. Is patient prescribed a controlled substance at d/c from ED?: No Referrals: Cari Lou MD [Primary Care Provider] - 1-2 days Time of Disposition: 22:37
[2024-11-11 23:10] VITALS: BP 90/54; PULSE 77; RESP 19; TEMP 98.3
== END 2024-11-11 23:23 | disposition home or self-care (01) ==
LOC: EC 19:27 → SUPCPDRO 19:27 → EC 23:23
DX: R42 Dizziness and giddiness (principal); E78.5 Hyperlipidemia, unspecified; I10 Essential (primary) hypertension; Z88.0 Allergy status to penicillin
CPT/HCPCS: 36415; 93005; 80053; 83605; 84484; 85025; 85610; 70496; 70450; 70498; 99284; 96360; Q9967